=== PATIENT | female | born 1950 | race Caucasian/White ===

== ENCOUNTER 2019-10-12 09:06 | Day surgery (SDC) | payer BC ==
[2019-10-12] MEDS ORDERED: LIDOCAINE 2% MDV (20MG/ML) 20ML VIAL IV ONE (09:07)
[2019-10-12] MEDS ORDERED: PROPOFOL 10 MG/ML VIAL IV ONE (09:07)
--- NOTE | 2019-10-12 15:10 | Operative Note ---
OPERATION: COLONOSCOPY. PREOPERATIVE DIAGNOSIS: History of sessile serrated adenoma. POSTOPERATIVE DIAGNOSIS: Tortuous redundant left colon, otherwise normal exam. PREPARATION QUALITY: Good. ESTIMATED BLOOD LOSS: None. SPECIMENS: None. COMPLICATIONS: None apparent. PROCEDURE: After informed consent was obtained from the patient, she was placed in the left lateral decubitus position in the endoscopy suite, sedated and monitored by the department of anesthesia. Digital rectal examination was unremarkable. A well-lubricated [id number] colonoscope was inserted into the rectum and advanced to what was felt to be the transverse colon. There was significant looping despite abdominal pressure. I was unable to expand the hepatic flexure very well and was concerned that there may be an air leak. The pediatric colonoscope was removed and a CF160 colonoscope was inserted into the rectum and advanced to the cecum. Preparation quality was good. The colon was quite tortuous and significant looping was noted in the left colon in particular. Transabdominal pressure and reduction of any sigmoid looping was performed numerous times. The cecum, cecal bulb, ileocecal valve, appendiceal orifice, ascending colon, transverse colon, descending colon, sigmoid colon, and rectum were unremarkable. The exam was otherwise normal. Forward and J-turn views of the rectum and anorectum revealed no polyps or mass lesions. The endoscope was straightened, the rectal ampulla deflated, and the endoscope was removed. RECOMMENDATIONS: I would suggest the patient undergo repeat exam in 5 years. As always, thank you for allowing me to participate in the healthcare of your patients. MICHAEL
== END 2019-10-12 11:48 | disposition home or self-care (01) ==
LOC: HOP 09:06
PROVIDERS: ATTEND Internal Medicine Gastroenterology
DX: Z12.11 Encounter for screening for malignant neoplasm of colon (principal); Z86.010 Personal history of colon polyps; Q43.8 Other specified congenital malformations of intestine; I10 Essential (primary) hypertension; E03.9 Hypothyroidism, unspecified; I49.9 Cardiac arrhythmia, unspecified; M19.90 Unspecified osteoarthritis, unspecified site